=== PATIENT | female | born 1965 | race Hispanic/Latino ===

== ENCOUNTER 2020-04-17 07:52 | Day surgery (SDC) | payer OTHER ==
[~2020-04-17] VITALS: Ht 149.9 cm; Wt 94.3 kg
[~2020-04-17 07:52] MED LIST: GLUC-148 PO; IBUP-43 PO; LEVE1000 PO; MAGN500C15 PO; MULT-1367 PO; SODIUM CHLORIDE 0.9% 1000ML 1,000 ML IV ONE; VITAMIN D3 PO; ZONI100C31 PO
[2020-04-17 08:45] VITALS: BP 140/95
[2020-04-17] MEDS ORDERED: PROPOFOL 10 MG/ML 20ML VIAL IV ONE (10:37)
[2020-04-17 10:57] VITALS: BP 102/54
[2020-04-17 11:00] VITALS: BP 111/60
[2020-04-17 11:05] VITALS: BP 125/68
[2020-04-17 11:10] VITALS: BP 147/90
[2020-04-17 11:15] VITALS: BP 141/86
== END 2020-04-17 12:16 | disposition home or self-care (01) ==
LOC: DAH 07:52 → ENDO 07:52
PROVIDERS: ATTEND Internal Medicine
DX: K59.01 Slow transit constipation (principal); Z86.010 Personal history of colon polyps; K57.30 Diverticulosis of large intestine without perforation or abscess without bleeding; Z20.828 Contact with and (suspected) exposure to other viral communicable diseases; E11.9 Type 2 diabetes mellitus without complications; G40.909 Epilepsy, unspecified, not intractable, without status epilepticus
CPT/HCPCS: 45378; A4215; A4221; A4222; A4223 ×2; A4606; A4663; C9803; J2704; J7030; U0003; G0105